=== PATIENT | female | born 1940 | race Caucasian/White ===

== ENCOUNTER 2022-03-12 17:43 | Inpatient (IN) | payer MEDICARE ==
[~2022-03-12] VITALS: Ht 160 cm; Wt 41.7 kg
--- NOTE | 2022-03-12 17:53 | NUR ---
PT SEEN BY DR. LYMAN AT BEDSIDE
--- NOTE | 2022-03-12 18:16 | NUR ---
RIVET PASSER AT BEDSIDE FOR XRAY
[2022-03-12] MEDS ORDERED: METO25TA4 PO (18:46)
--- NOTE | 2022-03-12 18:46 | NUR ---
COVID SWAB COLLECTED AND SENT TO LAB
[2022-03-12] MEDS ORDERED: CEFAZOLIN 1 GM in IV D5W 50 ML IV ONE (19:00)
[2022-03-12 19:09] LABS: CALCIUM, SERUM 8.7 mg/dL (8.5-10.1); CREATININE 0.7 mg/dL (0.6-1.3); POTASSIUM 4.5 mmol/L (3.5-5.1)
[2022-03-12] MEDS ORDERED: LIDOCAINE 1%-EPI 1:100,000 20 ML VIAL ONE (19:10)
--- NOTE | 2022-03-12 19:24 | NUR ---
[id number] FRM HOME, C/O R WRIST PAIN AND RFA SKIN TEAR S/P TRIP AND FALL WHILE AMBULATING TO RESTROOM PER CAREGIVER. PT AWAKE AND ALERT AT BASELINE MENTATION X1 DUE TO HX DEMENTIA. PT ON MONITOR AND V/S WNL.
--- NOTE | 2022-03-12 19:25 | NUR ---
PA AT BEDSIDE FOR SUTURES
[2022-03-12] MEDS ORDERED: LIDOCAINE 1%-EPI 1:100,000 20 ML VIAL TP ONE (19:30)
--- NOTE | 2022-03-12 19:48 | NUR ---
SPOKE TO HENRIQUE AT [facility] AT [phone] AND FAXED THE CLINICAL TO [phone]
[2022-03-12 20:02] LABS: BASOPHILS % (AUTO) 0.4 % (0.0-2.0); EOSINOPHILS % (AUTO) 1.7 % (0.0-6.0); HEMATOCRIT 42 % (33-45); LYMPHOCYTES # (AUTO) 1.2 K/uL (0.8-4.8); LYMPHOCYTES % (AUTO) 14.2 % (20.0-44.0); MEAN CORPUSCULAR HGB CONC 33 g/dl (31.0-36.0); MEAN CORPUSCULAR VOLUME 91 fL (82-100); MONOCYTES # (AUTO) 0.6 K/uL (0.1-1.30); MONOCYTES % (AUTO) 7.1 % (2.0-12.0); NEUTROPHILS # (AUTO) 6.5 K/uL (1.8-8.9); NEUTROPHILS % (AUTO) 76.6 % (43.0-81.0); PLATELET COUNT (AUTO) 319 K/uL (150-450); RED BLOOD CELL COUNT(AUTO) 4.65 MIL/uL (4.0-5.2); WHITE BLOOD COUNT (AUTO) 8.5 K/uL (4.3-11.0)
--- NOTE | 2022-03-12 20:24 | NUR ---
DR LYMAN ON THE PHONE WITH [facility]
--- NOTE | 2022-03-12 20:25 | NUR ---
PER DR LYMAN, DR SKY AT [facility] ACCEPTED THE PT
--- NOTE | 2022-03-12 20:49 | NUR ---
FORESTRY TREE PRUNER AT BEDSIDE FOR SPLINT APPLICTION
--- NOTE | 2022-03-12 21:37 | NUR ---
REC'D A CALL FROM HENRIQUE AT [facility], STATED CASE IS DECLINED DUE TO THEY'RE AT [facility]
--- NOTE | 2022-03-12 21:44 | NUR ---
CALLED [phone] [facility] AND SPOKE TO MARJORIE. THEY'RE STILL NOT OPERATING REGION 1 TRANSFER CANTER, WILL FAX THE CLINICAL TO MONICA AT [phone]
--- NOTE | 2022-03-12 21:56 | NUR ---
[facility]
--- NOTE | 2022-03-12 21:57 | NUR ---
FAXED CLINICALS TO MONICA AT [facility] [phone]
--- NOTE | 2022-03-12 22:04 | NUR ---
PER LEONILA AT [facility] UNABLE TO ACCPET THE PT THEY'RE JEREMI;NEAL ADMISSIONS IN ER
--- NOTE | 2022-03-12 22:12 | NUR ---
SPOKE TO ALDO AT [facility] AND FAXED CLINICALS TO [phone]
--- NOTE | 2022-03-12 22:18 | NUR ---
SPOKE AND FAXED CLINICALS TO BERT Mari/Austen ALVARADO AT [phone]
--- NOTE | 2022-03-12 22:37 | NUR ---
ON THE PHONE WITH [facility] FOR POSSIBLE TRANSFER FOR >20 MIN,. NO ANSWER
--- NOTE | 2022-03-12 22:38 | NUR ---
PER CHRISTIANO GARCIA HOUSTON THIS IS CONSIDERED A LATERAL TRANSFER. AND THE FAMILY IS RESPONSIBLE FOR THE AMBULANCE COST. STILL LOOKING FOR BED
--- NOTE | 2022-03-12 22:43 | NUR ---
REC'D A CALL FROM [facility], THE CLINICALS ARE REC'D. LOOKING FOR BED AVAILABLITIES. NO BED AT THIS TIME
--- NOTE | 2022-03-12 22:56 | NUR ---
[facility] [place] PER TAMI THEIR ED IS AT [facility].
--- NOTE | 2022-03-12 23:33 | NUR ---
SPOKE TO RODRIGO AT [facility], NO BED AVAILABLE
--- NOTE | 2022-03-12 23:36 | NUR ---
SPOKE TO GOLF [employer]UB WEIGHER [address] AT [facility]. NO BED AVAILABLE
--- NOTE | 2022-03-12 23:40 | NUR ---
PER MAY AT [facility] NO BED AVAILABLE
--- NOTE | 2022-03-12 23:53 | NUR ---
SPOKE TO EMI MONTGOMERY FROM [facility] AND INFORMED OF NO AVAILABLE BEDS FOR [facility], .
--- NOTE | 2022-03-12 23:54 | NUR ---
SPOKE TO SHANE FOSS [facility] @ [phone]. SHE PAGED THEIR ONCALL ONTHO, DR DIAMOND. AWAITING FOR HIS CALL DR MAYNARD ON THE PHONE WITH DR RICCI @ ER Addendum: 03/13/22 at 0031 by CSHAYESTEH SHANE IS AT [facility] [place] COVERING ANNA ARZOLA WELL.
--- NOTE | 2022-03-13 00:22 | NUR ---
FAXED UPDATED FACESHEET TO MARJORIE AT [facility] AND SPOKE TO HER OVER THE PHONE. SHE WILL PAGE THE ORTHO.
--- NOTE | 2022-03-13 00:36 | NUR ---
PER NANCY MONTGOMERY AT [facility], THEIR ORTHOPEDIC IS UNABLE TO TAKE AN OPEN RADIAL FRACTURE AT THIS TIME.
--- NOTE | 2022-03-13 01:08 | NUR ---
ON THE PHONE WITH [facility] FOR MORE THAN 30 MINUTES. HUNG UP ON ME!
--- NOTE | 2022-03-13 01:51 | NUR ---
CALLED [facility] FOR POSSIBLE TRANSFER. WAS INSTRUCTED TO GET ASSISTANCE FROM [facility] TO TRANSFER THE PT.
--- NOTE | 2022-03-13 02:12 | NUR ---
spoke to jovanni fung cm at [phone] and faxed the clinicals to [phone]
[2022-03-13] MEDS ORDERED: MORPHINE SULFATE INJ 4 MG/ML DISP.SYRIN ONE (03:06)
--- NOTE | 2022-03-13 03:27 | NUR ---
MARIBEL DUNN, FOOD AND BEVERAGE ASSISTANT AT [facility], PT IS ACCPETED AT [facility] BY HOSPITALIST, DR BALL AND ORHTODR MURRAY. AWAITING FOR BE AVAILABLE AFTER 0800. MONA WILL UPDATE US.
[2022-03-13] MEDS ORDERED: MORPHINE SULFATE 8 MG/ML VIAL IV ONE (03:30)
--- NOTE | 2022-03-13 08:22 | NUR ---
EMERGENCY CONTACT: SISTER NIRANJAN ELLISON [phone]
--- NOTE | 2022-03-13 08:29 | NUR ---
ASSESSED PT PAIN LEVEL, STATED THAT SHE DOES NOT WANT PAIN MEDICATIONS AT THIS TIME.
--- NOTE | 2022-03-13 10:20 | NUR ---
PT WATCHING TV IN BED COMFORTABLY, ALL NEEDS MET AT THIS TIME.
--- NOTE | 2022-03-13 10:43 | NUR ---
received a call from the Ana MONTGOMERY from [facility] to call us back to where the patient is going to be transfer.
[2022-03-13] MEDS ORDERED: CEFTRIAXONE 1GM BAG (ER ONLY) 1 GM/50 ML PIGGYBACK IV ONE (11:00)
[2022-03-13] MEDS ORDERED: CEFTRIAXONE 1GM BAG (ER ONLY) 50 ML IV ONE (11:02)
--- NOTE | 2022-03-13 12:00 | NUR ---
BANKING AND FINANCE INSTRUCTOR FOR [employer] CALLED ASKING ABOUT COVID RESULT AND WAS NOTIFIED THAT THERE IS A POSSIBLE FACILITY THAT WILL ACCEPT THE PT. FAXED COVID RESULT TO [phone]
--- NOTE | 2022-03-13 12:01 | NUR ---
*BREWMASTER [employer] PHONE NUMBER UPDATED* [phone] Option [facility]
[2022-03-13] MEDS ORDERED: CEFAZOLIN 1 GM in IV D5W 50 ML IV SCH (14:30)
[2022-03-13] MEDS ORDERED: ANCEF 1 GM/50 ML D5W IV ONE ×2 (16:30)
[2022-03-13] MEDS ORDERED: ONDANSETRON HCL/PF 4 MG/2 ML VIAL IVP PRN (18:30)
[2022-03-13] MEDS ORDERED: ACETAMINOPHEN 325 MG TABLET PO PRN (18:30)
[2022-03-13] MEDS ORDERED: MAG HYDROX/AL HYDROX/SIMETH 30 ML UDC PO PRN (18:30)
[2022-03-13] MEDS ORDERED: MORPHINE SULFATE INJ 2 MG/ML DISP.SYRIN IV PRN (18:30)
[2022-03-13] MEDS ORDERED: MAGNESIUM HYDROXIDE 30 ML UDC PO PRN (18:30)
[2022-03-13] MEDS ORDERED: Z GUARD REMEDY 4 OZ OINT TP PRN (18:30)
--- NOTE | 2022-03-13 19:53 | NUR ---
afshin from [facility] authorization [id number]
--- NOTE | 2022-03-13 20:43 | NUR ---
REPORT GIVEN TO DEBRA ON THIRD FLOOR
--- NOTE | 2022-03-13 20:44 | NUR ---
PATIENT BEING TRANSFERRED TO [facility]
[2022-03-13 22:00] VITALS: BP 131/73
--- NOTE | 2022-03-13 23:42 | NUR ---
MS RN NOTES PT ARRIVED TO UNIT VIA GURNEY PT WAS ABLE TO WALK TO BED NOTED WITH STEADY GAIT. PT A/O X2 CONFUSED AND FORGETFUL. PT NOTED WITH IV ACCESS ON THE LFA#20G SALINE LOCKED. PT NOTED WITH RIGHT ARM DRESSING INTACT PT HAS R WRST OPEN FRACTURE. PT TO HAVE SX WITH DR SPENCER TOMORROW @1000 CONSENT OBTAINED FROM SISTER DENISHA TIRADO WITNESSED BY CHARGE NURSE IVA. PER SISTER ONLY MEDICAL HX DEMENTIA. PT ALSO NOTED WITH BLE DISCOLORATION PHOTO TAKEN AND PLACE IN CHART. PT ORIENTED TO UNIT AND ROOM CALL LIGHT PLACED WITHIN REACH. PT REPORTED SOME R WRIST PAIN 8/10 PRN MORPHINE GIVEN AND TOLERATED WELL. WILL CONTINUE TO MONITOR.
--- NOTE | 2022-03-14 02:00 | NUR ---
MS RN NOTES ACUTE MEDICAL RESTRAINT ORDERED DUE TO PTS CONFUSION AND FORGETFULNESS. PT KEEPS TRYING TO GET UP AND PUTTING PRESSURE ON R WRIST. BILATERAL RESTRAINT APPLIED CIRCULATION CHECKED Q2HRS. HYGIENE, AND TOILETING NEEDS MET. WILL CONTINUE TO MONITOR.
--- NOTE | 2022-03-14 04:00 | NUR ---
MS RN NOTES ONE TIME DOSE OF SEROQUEL ORDERED MT DR ROBERTS DUE TO PTS AGITATION. TOLERATED WELL. WILL CONTINUE OT MONITOR.
[2022-03-14] MEDS ORDERED: QUETIAPINE FUMARATE 25 MG TABLET PO ONE (04:30)
--- NOTE | 2022-03-14 06:48 | NUR ---
MS RN NOTES PT ASLEEP IN BED EASILY WOKEN UP WITH BILATERAL RESTRAINT ON AT THIS TIME. PT IN NO DISTRESS IN NO PAIN. ON ROOM AIR TOLERATING WELL. ALL NEEDS MET THROUGHOUT THE SHIFT. FREQUENT MONITORING.PT NPO SINCE MIDNIGHT FOR SX OF THE RIGHT WRIST. CONSENTS SIGNED AND PLACED IN CHART. WILL ENDORSE SHAILESH TO DAY SHIFT NURSE.
[2022-03-14 07:22] LABS: BASOPHILS % (AUTO) 0.1 % (0.0-2.0); EOSINOPHILS % (AUTO) 0.2 % (0.0-6.0); HEMATOCRIT 41 % (33-45); HEMOGLOBIN 13.4 g/dL (11.5-14.8); LYMPHOCYTES # (AUTO) 0.8 K/uL (0.8-4.8); LYMPHOCYTES % (AUTO) 7.5 % (20.0-44.0); MEAN CORPUSCULAR HGB CONC 33 g/dl (31.0-36.0); MEAN CORPUSCULAR VOLUME 91 fL (82-100); MONOCYTES # (AUTO) 0.9 K/uL (0.1-1.30); MONOCYTES % (AUTO) 9.3 % (2.0-12.0); NEUTROPHILS # (AUTO) 8.3 K/uL (1.8-8.9); NEUTROPHILS % (AUTO) 82.9 % (43.0-81.0); PLATELET COUNT (AUTO) 265 K/uL (150-450); RED BLOOD CELL COUNT(AUTO) 4.49 MIL/uL (4.0-5.2)
[2022-03-14 07:54] LABS: CALCIUM, SERUM 8.5 mg/dL (8.5-10.1); CARBON DIOXIDE 34 mmol/L (21-32); CHLORIDE 99 mmol/L (98-107); CREATININE 0.6 mg/dL (0.6-1.3); GLUCOSE 97 mg/dL (74-106); MAGNESIUM 1.9 mg/dL (1.8-2.4); PHOSPHORUS 2.8 mg/dL (2.5-4.9); POTASSIUM 3.9 mmol/L (3.5-5.1); SODIUM SERUM 136 mmol/L (136-145); UREA NITROGEN, BLOOD 20 mg/dL (7-18)
[2022-03-14 08:00] VITALS: BP 137/76
[2022-03-14] MEDS: METOPROLOL SUCCINATE 25 MG TAB.SR.24H PO SCH (09:00)
[2022-03-14] MEDS ORDERED: ANESTHESIA TRAY IN PYXIS 1 EA TRAY MC ONE (10:38)
[2022-03-14] MEDS ORDERED: BUPIVACAINE 0.25% 75 MG/30 ML VIAL ONE (10:39)
[2022-03-14] MEDS ORDERED: FENTANYL PF 250MCG/5ML AMPUL ONE (11:14)
[2022-03-14] MEDS ORDERED: FAMOTIDINE/PF INJ 20 MG/2 ML VIAL IV ONE (11:15)
[2022-03-14] MEDS ORDERED: ROCURONIUM BROMIDE 50 MG/5 ML ONE (11:15)
[2022-03-14] MEDS ORDERED: MIDAZOLAM HCL 2 MG/2ML VIAL ONE (11:15)
[2022-03-14] MEDS ORDERED: BISACODYL SUPP (10 MG) 10 MG/SUPP.RECT SUPP.RECT RC PRN (14:00)
[2022-03-14] MEDS ORDERED: DOCUSATE SODIUM 100 MG CAPSULE PO PRN (14:00)
[2022-03-14] MEDS ORDERED: DOCUSATE SODIUM 250 MG CAPSULE PO PRN (14:00)
[2022-03-14] MEDS ORDERED: HYDROCODONE/APAP 5/325MG TABLET PO PRN (14:00)
[2022-03-14] MEDS ORDERED: SENNOSIDES 8.6 MG TABLET PO PRN ×2 (14:00)
[2022-03-14] MEDS ORDERED: MORPHINE SULFATE INJ 4 MG/ML DISP.SYRIN IV PRN (14:00)
[2022-03-14 16:00] VITALS: BP 113/68
[2022-03-14] MEDS: IV NS 0.9% 1,000 ML IV PRN (16:36)
--- NOTE | 2022-03-14 18:12 | NUR ---
RN MS NOTES RECEIVED PT FROM LORI COOL, PT IN BED, ASLEEP, EASY TO AROUSE, NO COMPLAINT AT THIS TIME, RESPIRATIONS NORMAL, IV FLUIDS INFUSING WELL, CALL LIGHT WITHIN REACH, RIGHT ARM WITH DRESSING, NO S/S OF BLEEDING, DRESSING DRY AND INTACT, KEPT ELEVATED, KEPT WARM AND COMFORTABLE.
--- NOTE | 2022-03-14 19:11 | NUR ---
RN MS OPENING NOTES PT IN BED, ASLEEP, EASY TO AROUSE, NO COMPLAINT AT THIS TIME, RESPIRATIONS NORMAL, ON O2 2L VIA NASAL CANNULA IV FLUIDS NS @ 100 ML/HR INFUSING WELL, CALL LIGHT WITHIN REACH, RIGHT ARM WITH DRESSING, NO S/S OF BLEEDING, DRESSING DRY AND INTACT, KEPT ELEVATED, KEPT WARM AND COMFORTABLE RESTRAINTS OFF AT THIS TIME. WILL CONTINUE TO MONITOR.
[2022-03-14 20:00] VITALS: BP 96/56
[2022-03-14] MEDS: ANCEF 1 GM/50 ML D5W IV SCH ×2 (20:04)
[2022-03-15] VITALS: BP 130/73
[2022-03-15] MEDS: ANCEF 1 GM/50 ML D5W IV SCH ×6 (03:28→20:29)
[2022-03-15 04:00] VITALS: BP 136/76
[2022-03-15 06:27] LABS: BASOPHILS % (AUTO) 0.1 % (0.0-2.0); EOSINOPHILS % (AUTO) 0.2 % (0.0-6.0); HEMATOCRIT 36 % (33-45); HEMOGLOBIN 11.9 g/dL (11.5-14.8); LYMPHOCYTES # (AUTO) 0.6 K/uL (0.8-4.8); LYMPHOCYTES % (AUTO) 4.2 % (20.0-44.0); MEAN CORPUSCULAR HGB CONC 33 g/dl (31.0-36.0); MEAN CORPUSCULAR VOLUME 93 fL (82-100); MONOCYTES # (AUTO) 0.8 K/uL (0.1-1.30); NEUTROPHILS # (AUTO) 11.7 K/uL (1.8-8.9); NEUTROPHILS % (AUTO) 89.5 % (43.0-81.0); PLATELET COUNT (AUTO) 207 K/uL (150-450); RED BLOOD CELL COUNT(AUTO) 3.91 MIL/uL (4.0-5.2); WHITE BLOOD COUNT (AUTO) 13.1 K/uL (4.3-11.0)
--- NOTE | 2022-03-15 06:41 | NUR ---
RN MS CLOSING NOTES PT IN BED, ASLEEP, EASY TO AROUSE, NO COMPLAINT AT THIS TIME, RESPIRATIONS NORMAL, ON O2 3L VIA NASAL CANNULA IV FLUIDS NS @ 100 ML/HR INFUSING WELL, CALL LIGHT WITHIN REACH, RIGHT ARM WITH DRESSING, KEPT ELEVATED, KEPT WARM AND COMFORTABLE. PT CALM WHEN AWAKE A/0 X2 FORGETFUL BUT EASILY REORIENTED. NEW IV ACCESS ESTABLISHED L WRIST #22G.
[2022-03-15 07:05] LABS: CALCIUM, SERUM 8.2 mg/dL (8.5-10.1); CARBON DIOXIDE 29 mmol/L (21-32); CHLORIDE 104 mmol/L (98-107); CREATININE 0.9 mg/dL (0.6-1.3); GLUCOSE 87 mg/dL (74-106); MAGNESIUM 1.9 mg/dL (1.8-2.4); PHOSPHORUS 4.3 mg/dL (2.5-4.9); POTASSIUM 4.4 mmol/L (3.5-5.1); SODIUM SERUM 138 mmol/L (136-145); UREA NITROGEN, BLOOD 20 mg/dL (7-18)
--- NOTE | 2022-03-15 07:30 | NUR ---
RN MS OPENING NOTES PT IN BED, ASLEEP, EASY TO AROUSE, NO COMPLAINT AT THIS TIME, RESPIRATIONS NORMAL, ON O2 3L VIA NASAL CANNULA IV ACCESS L H #22 RUNNING FLUIDS NS @ 100 ML/HR INFUSING WELL. TELE MONITOR READING SR, HR- 73. CALL LIGHT WITHIN REACH. RIGHT ARM WITH DRESSING, NO S/S OF BLEEDING, DRESSING DRY AND INTACT, KEPT ELEVATED, WILL CONTINUE TO MONITOR
--- NOTE | 2022-03-15 07:34 | NUR ---
WOUND CARE CONSULT: PT SEEN FOR FOREARM SKIN TEARS, PRESENT ON ADMISSION. RECOMMENDATIONS MADE FOR SKIN PROTECTION AND WOUND CARE. DISCUSSED WITH NURSING STAFF. PT ALSO NOTED TO HAVE VERY FRAGILE SKIN, DISCOLORATION TO BILATERAL LOWER LEGS AND DRY EXCORIATION/DISCOLORATION TO RT BUTTOCK WITH VERY BONY SACRAL AREA, PRESENT ON ADMISSION. PT IS VERY THIN AND BONY. MD IN AGREEMENT WITH PLAN OF CARE.
[2022-03-15 08:00] VITALS: BP 127/72
[2022-03-15] MEDS: METOPROLOL SUCCINATE 25 MG TAB.SR.24H PO SCH (08:24)
--- NOTE | 2022-03-15 12:56 | NUR ---
RN NOTE- PT W SR 70'S . CHANGES NOTED BY TELE MONITOR. STAT EKG ORDERED. HR - 140'S. AFIB. DR WINTERS FORWARDED EKG. AMIODARONE 400 MG PO TID ORDERED. COMPLIED.
[2022-03-15] MEDS: AMIODARONE HCL 200 MG TABLET PO SCH ×2 (13:03→17:05)
[2022-03-15] MEDS: HYDROCODONE/APAP 5/325MG TABLET PO PRN (14:05)
--- NOTE | 2022-03-15 14:09 | NUR ---
SS consult requested for safe DC planning. SS Consult: SS Consult requested for safe DC planning. The pt. is a 81-year-old female patient that was brought in by caregiver after pt. suffered ground level fall which resulted in right radius fracture per EMR. Per EMR, the pt. has Hx. of Dementia. Upon SS consult, the pt. is A&O x 3 and makes appropriate eye contact. Pt. does have some confusion. The pt. appears well-groomed and presents with a euthymic mood and affect. Pt. denies current SI/HI and denies current hallucinations. Pt. has normal thought process and speech is WNL. PSW explored pt.s living situation. Per pt., she lives at home[[address] [address]; [phone]] with her sister. The patients caregiver, Jerica [phone] is at bedside. SW explored pt.s drug or alcohol use and pt. denies any use of drug or alcohol. Pt. states she receives SSI. Plan: Pt. stated she would like to go home to her apt[[address] [address]; [phone]]. Patient stated her caregiver, Jerica [phone] would be providing transportation to home when ready for discharge. SW provided pt. with senior resources and pt. accepted them. ABUSE PREVENTION: ELDER ABUSE HOTLINE (19/03) ADULT PROTECTIVE SERVICES HOTLINE LONG-TERM CARE GROUP [facility] COMPREHENSIVE [facility]ALTH CARE FACILITY Region AREA ON AGING (HOTLINE) ADULT DAY HEALTH CARE CARE CENTERS: Private pay or Medi-[facility] funded adult day care [place] [facility] Care [facility] , [facility] Services , [facility] , [facility] Adult Day Health Care , [facility] Adult Day Health Care , [facility] Adult Daycare Center , [facility] Express , [place] Kita [facility] , [place] ALZHEIMERS DISEASE/DEMENTIA: Alzheimers Association Helpline [facility] Chapter www.alz.org/[facility] Department of Aging www.lacity.org Family Caregiver Stanton www.caregiver.org [place] Caregiver Resources Center/Family Support www.[facility].org CANCER RESOURCES: [place] Cancer Society www.cancer.org Cancer Support Community www.CancerSupportVvsb.org: CancerCare www.cancercare.org [facility] Cancer Support Center www.[facility]/greybull.org COMMUNITY HEALTH ASSOCIATIONS: AARP www.aarp.org ALS Association (ask for Milli) www.als.org [place] Diabetes Association www.diabetes.org [place] Heart Association www.heart.org [place] Lung Association www.lungusa.org [place] Parkinson Disease Association www.apdaparkinson.org [place] , www.redcross.org Arthritis Foundation www.arthritis.org Crohns & Colitis Foundation of [place] www.ccfa.org/chapters/macey National Multiple Sclerosis Society www.nationalmssociety.org Myasthenia Gravis Foundation www.myasthenia-ca.org National Stroke Association www.stroke.org CONSERVATORSHIP & GUARDIANSHIP: AARP Jeannette Philip Legal Services Center for Health Care Rights Eldercare Information and Referral Medical Social Worker [facility]: [facility] Bar Referral Service [facility] Legal Services Office of the Public Guardian [place] EYESIGHT DISORDER RESOURCES: [place] Macular Degeneration Foundation [facility] www.[facility].org GRIEF AND BEREAVEMENT RESOURCES: The Gathering Place , [facility] THE HOPE Connection , [facility] Bereavement Center , [place] HEARING DISORDER RESOURCES: [place] Telephone Access Program Deaf and Disabled Telecommunications Program www.ddtp.[facility].ca.gov HearRx Hearing Centers ([place]) Better Hearing Systems , [place] GLAD ([facility] Agency on Deafness) V/ TTY; Educational Recruiter , [facility] Hearing [facility] [place] -low income hearing aid assistance www.hca [facility] bay[facility] point hospitalfoundation.org [facility] Hearing Care , Daniel HELP AT HOME CAREGIVER SUPPORT: In Home Support Services (Must have Medi-[facility] to be eligible) *Ask for a list of agencies that provide services to assist with care in the home. Local Senior Centers also have listings of care providers. HOME SAFETY MODIFICATIONS AND EQUIPMENT: Senior centers have additional referrals. MD Housing and Community Investment Dept. Handyworker Program (low income) or Visit http://hcidla.[facility].org/hdp-wgfxtk-ep for more information National Seating and Mobility and/or ; Forever Active www.foreveractivemed.Tamar Energy Stay Home Safe www.Stayhomesafe.Tamar Energy LIFE ALERT RESPONSE SYSTEM: Siri Services 101-142-3539 www. The Black Tux Life Alert 131-103-0868 www.Global Capacity (Capital Growth Systems) Life Station 506-539-5430 www.EntraTympanic.Tamar Energy Safe Return 683-608-8404 www.alz.or/safereturn Cell Phones for Seniors www.Komar Games MEALS AND FOOD PROGRAMS: Marilynn Meals on Wheels [phone] Athena Meals on Wheels [phone] [facility] [phone] [place] to the Homebound [phone] [place] to the Homebound [phone] [facility] to the Homebound [phone] [facility] to the Homebound [phone] [facility] Aurelio [place] [phone] TamGerald [facility] [phone] ONE Generation [phone] [facility] [phone] Replaced By [facility] [phone] Meals on Wheels [phone] For all ages: $6.85/ meal w side. Delivered M-F from 10 am-1pm. Application and payment is done over the phone. Frozen meals available for weekends. Emergency Food Coallittle [facility] [phone] [facility] Drupal Php Developer [phone] [facility] [phone] [facility]- Brown bag lunches [phone] [facility] [phone] MEAL/GROCERY DELIVERY PROGRAMS: Real [facility] Gourmet Meals [phone]- [facility] [phone] [facility] Magic Kitchen [phone] Moms Meals [phone] (ask Cooper for Discount Select grocery stores may provide delivery. MEDICAL INSURANCE SUPPORT SERVICES: Center for Health Care Rights [phone] Health Insurance Counseling/Advocacy Programs (HICAP)-Must have Medicare. Offers counseling for Medi-Lion eligibility [phone] Department of Public Drupal Php Developer [phone] www.[facility].ca.gov Medicare [phone] www.socialsecurity.org Social Security [phone] SENIOR ACTIVITY PROGRAMS: *Contact a local senior center, adult school, recreation facility or community [facility] for education, fitness, recreation, and social programs. Aquatic Therapy and Adapted Exercise programs through [facility] [phone] Encore at [facility] [phone] www.[facility]/encore U- Senior Friends [phone] [place] Senior Programs [phone] www.oasisnet.org Suddenly 65 www.ecjwkcyy91.Tamar Energy SENIOR CENTERS: [facility] [phone] [facility] [phone] [facility] [phone] [facility] [phone] [facility] [phone] [facility] [phone] [facility] [phone] [facility] [phone] One [facility] [phone] [facility] [phone] [facility] [phone] [facility] [phone] [facility] [phone] TRANSPORTATION: Local [facility] may have applications for transportation programs and additional resources. ACCESS Services [phone] Transportation for seniors and disabled persons 7 days a week requiring 254 hr. advance reservation. Must apply and register for program con eligible. CITY RIDE 218-381-1894 or [phone] Transportation for seniors and persons with ADA card/metro disabled card in the [facility]. M-F only. Must register for services. ONE GENERATION [phone] Serves 65 years + in conjunction with city ride program. Must be registered with both programs. A to B Transport [phone] Provides wheelchair/gurney van service. Adult Medical Transport [phone] Accepts [facility]-lion with prior authorization. Care Van [phone] Provides wheelchair Transport. [facility] Wide Transportation [phone] Provides gurney service Gentle Care [phone] Gurney Transport. All Town Transportation [phone] wheelchair & gurney transport D Transportation [phone] wheelchair & gurney transport [place] Non-Emergency Transport [phone] wheelchair & gurney transport Independent Living Center [phone] Short Term Transportation primarily for adults with disabilities on social security income. Nominal fee may apply and a reservation is required. [facility] Cab [phone] or [phone] [facility] [phone] [place] [address] Referral Services [phone] For additional programs & services VETERANS RESOURCES: Submissions for Aid and Attendance should be done directly to Federal VA office locatd at : [address] [facility] [address] X110 National Caregiver Support Line [phone] [facility] Veterans Services Field Office [phone] [place] Department of Affairs [phone] Pension Information [phone]
--- NOTE | 2022-03-15 15:29 | NUR ---
RN NOTE- PT W CONTINUED ANXIETY, RESTLESSNESS AND BEHAVIORAL ISSUES. DR BUTTERFIELD NOTIFIED. ATIVAN 0.5 MG Q6H PRN ORDERED. COMPLIED.
[2022-03-15 16:00] VITALS: BP 158/91
[2022-03-15] MEDS ORDERED: LORAZEPAM 0.5 MG TABLET PO PRN (16:00)
--- NOTE | 2022-03-15 16:05 | NUR ---
RN NOTE- PT RECEIVED SKIN TEAR TO LT FOREARM DUE TO THRASHING ABOUT AND ANXIETY. CLEANSED W NS, PETROLEUM GAUZE AND 4X4 APPLIED. WRAPPED W KERLIX. TOLERATED WELL
[2022-03-15] MEDS: LORAZEPAM 0.5 MG TABLET PO PRN (17:03)
--- NOTE | 2022-03-15 17:12 | NUR ---
ONCOLOGY RN NOTES: 1700- SOFT RESTRAINTS HELD DUE TO PT CONTINUED TO BE AGITATED AND COMBATIVE, PRIVATE CAREGIVER AT BEDSIDE NOT ABLE RESTRAIN PT TRASHING AROUND, KICKING AND SCRATCHING. PT HIT HER LFT LEG ON SIDERAILS WHILE TRYING TO GET UP WHICH RESULTED IN LEFT LEG SKIN TEAR. PER CAREGIVER, PT ALSO SCRATCHED HERSELF ON LOWER LEFT LEG. RN CLEANED SKIN TEARS WITH NORMAL SALINE, DRESSED IN XEROFORM AND KERLIX. ENVIRONMENTAL MANAGER AWARE, MADE MD AWARE, WOULD CONSULT ORDERED.
--- NOTE | 2022-03-15 19:04 | NUR ---
RN CLOSING NOTES PT IN BED, ASLEEP. NO ACUTE DISTRESS OR SOB NOTED. AT THIS TIME. RESPIRATIONS NORMAL, ON O2 3L VIA NASAL CANNULA IV ACCESS L H #22 RUNNING FLUIDS NS @ 100 ML/HR INFUSING WELL. TELE MONITOR READING SR, HR- 77. CALL LIGHT WITHIN REACH. RIGHT ARM WITH DRESSING, NO S/S OF BLEEDING, DRESSING DRY AND INTACT, HOB ELEVATED, BED LOCKED AT LOWEST POSTION, CALL LIGHT AND TABLE WITHIN REACH WILL ENDORSE TO NEXT SHIFT.
--- NOTE | 2022-03-15 19:20 | NUR ---
RN opening notes Pt is resting in bed comfortably. Pt is alert and orientedX2. On 3 L NC. No SOB. No S/S of distress noted. IV site at L wrist # 22 is clean, intact and infusing well NS@ 100 ml/hr. Tele monitor showed SR hr at 70. Safety precautions is maintained. Bed at low position, brakes locked, side rails upX3, hob elevated, bed alarm is on and call light is within reach. Will continue to monitor.
[2022-03-15 20:00] VITALS: BP 122/69
[2022-03-16] VITALS (7 sets, daily range): BP systolic 97–155; BP diastolic 62–85
[2022-03-16] MEDS: IV NS 0.9% 1,000 ML IV PRN (00:23)
[2022-03-16] MEDS: LORAZEPAM 0.5 MG TABLET PO PRN ×2 (02:02→18:43)
--- NOTE | 2022-03-16 02:07 | NUR ---
RN notes Pt is feeling anxious and requesting med. administered ativan 1mg/po/prn as ordered. Safety precautions is maintained. Will continue to monitor.
[2022-03-16] MEDS: ANCEF 1 GM/50 ML D5W IV SCH ×4 (03:35→11:31)
--- NOTE | 2022-03-16 06:45 | NUR ---
RN closing notes Pt is resting in bed comfortably. Pt is alert and orientedX2. On 3 L NC. No SOB. No S/S of distress noted. VS is stable. Routine meds were given as ordered. IV site at L wrist # 22 is clean, intact and infusing well NS@ 100 ml/hr. Tele monitor showed SR hr at 68. R arm dressing is clean, intact and dry. Kept Pt clean, dry and comfortable. Safety precautions is maintained. Bed at low position, brakes locked, side rails upX3, hob elevated, bed alarm is on and call light is within reach. Will endorse to am nurse for SHAILESH.
--- NOTE | 2022-03-16 07:30 | NUR ---
BODY RECALL INSTRUCTOR OPENING NOTES: RECEIVED PATIENT IN BED ASLEEP EASY TO AROUSED WITH STIMULI, A/O X2. NO SOB OR CARDIAC DISTRESS NOTED ON O2 INHALATION @2LPM VIA NC AND TOLERATING WELL. ON POULTRY OFFAL ICER WITH CURRENT READING OF SR 68BPM,NOTED WITH SPLINT AND DRESSING ON RIGHT ARM NO S/S OF ANY BLEEDING OR DISCHARGES. WITH LEFT WRIST G22 NS @ 1OOML/HR. SAFETY PRECAUTIONS MAINTAINED: BED LOCKED AND IN LOWEST POSITION, SIDE RAILS UP X 2 CALL LIGHT IN EASY REACH FOR HELP/ASSISTANCE. WILL MONITOR FOR ANY SIGNIFICANT CHANGE.
[2022-03-16] MEDS: AMIODARONE HCL 200 MG TABLET PO SCH ×3 (08:29→16:34)
[2022-03-16] MEDS: METOPROLOL SUCCINATE 25 MG TAB.SR.24H PO SCH (08:29)
[2022-03-16 10:50] LABS: BASOPHILS % (AUTO) 0.2 % (0.0-2.0); EOSINOPHILS % (AUTO) 0.8 % (0.0-6.0); HEMATOCRIT 38 % (33-45); HEMOGLOBIN 12.3 g/dL (11.5-14.8); LYMPHOCYTES # (AUTO) 0.6 K/uL (0.8-4.8); LYMPHOCYTES % (AUTO) 6.4 % (20.0-44.0); MEAN CORPUSCULAR HGB CONC 33 g/dl (31.0-36.0); MEAN CORPUSCULAR VOLUME 92 fL (82-100); MONOCYTES # (AUTO) 0.9 K/uL (0.1-1.30); MONOCYTES % (AUTO) 9.7 % (2.0-12.0); NEUTROPHILS # (AUTO) 8.1 K/uL (1.8-8.9); NEUTROPHILS % (AUTO) 82.9 % (43.0-81.0); PLATELET COUNT (AUTO) 212 K/uL (150-450); RED BLOOD CELL COUNT(AUTO) 4.09 MIL/uL (4.0-5.2); WHITE BLOOD COUNT (AUTO) 9.7 K/uL (4.3-11.0)
[2022-03-16 11:19] LABS: CREATININE 0.7 mg/dL (0.6-1.3); MAGNESIUM 1.9 mg/dL (1.8-2.4); POTASSIUM 4.2 mmol/L (3.5-5.1)
--- NOTE | 2022-03-16 12:47 | NUR ---
RN NOTES: COLLECTED URINE, SPOKE TO TALON FROM LAB URINE READY TO MACHINE PACK ASSEMBLER.
[2022-03-16 13:55] LABS: BILIRUBIN,URINE NEGATIVE (NEGATIVE); COLOR,URINE DARK YELLOW (YELLOW); LEUKOCYTE ESTERASE ,URINE NEGATIVE (NEGATIVE); NITRITE, URINE NEGATIVE (NEGATIVE); PROTEIN,URINE TRACE mg/dl (NEGATIVE); UGLUCOSE NEGATIVE (NEGATIVE); UROBILINOGEN,URINE 0.2 EU/dL (0.2)
[2022-03-16] MEDS ORDERED: K PHOS NEUTRAL 250 MG TABLET PO ONE (15:30)
[2022-03-16 16:13] LABS: BACTERIA,URINE Few /HPF (None Seen); SQUAMOUS EPITHELIAL CELL,UR Moderate /HPF (None Seen)
[2022-03-16] MEDS: HYDROCODONE/APAP 5/325MG TABLET PO PRN (16:32)
[2022-03-16] MEDS: ENSURE ENLIVE 237 ML LIQUID (VANILLA) PO SCH (17:03)
--- NOTE | 2022-03-16 17:57 | NUR ---
RN NOTE- MESSAGED W DR BRAUN REGARDING DRESSING CHANGE AND SPLINT ON RUE. WOUND CARE TO SEE. CONSULT ORDERED FOR TOMORROW MORNING. SPLINT AND DRESSING EXAMINED AND REINFORCED BY THIS RN. EDEMATOUS DIGITS / WARM TO TOUCH, AND ECCHYMOTIC, CAPILLARY REFILL GOOD/PRESENT. SPLINT IN PLACE. DRESSINGS CHANGED TO OTHER AREAS BY TEACHING AIDE. WOUND CARE EVAL IN AM. FOLLOW UP PER ORDERS
--- NOTE | 2022-03-16 18:35 | NUR ---
INTERVENTIONAL RADIOLOGY RN CLOSING NOTES: PATIENT IN BED ASLEEP EASY TO AROUSED WITH STIMULI, A/O X2. NO SOB OR CARDIAC DISTRESS NOTED ON O2 INHALATION @2LPM VIA NC AND TOLERATING WELL. ON SERVER SYSTEMS ADMINISTRATOR WITH CURRENT READING OF SR 75 BPM. NOTED WITH SPLINT AND DRESSING ON RIGHT ARM NO S/S OF ANY BLEEDING OR DISCHARGES. WITH LEFT WRIST G22 NS @ 1OOML/HR. SAFETY PRECAUTIONS MAINTAINED: BED LOCKED AND IN LOWEST POSITION, SIDE RAILS UP X 2 CALL LIGHT IN EASY REACH FOR HELP/ASSISTANCE.ENDORSED TO INSTRUCTOR EXTENSION WORK NURSE FOR CONTINUITY OF CARE.
--- NOTE | 2022-03-16 19:25 | NUR ---
TAPPING MACHINE OPERATOR AUTOMATIC NOTES RECEIVED ON BED A/O 1-2,ABLE TO STATE HER NAME AND BIRTHDAY,S/P ORIF IN RIGHT WRIST 03/04,DRESSING INTACT AND DRY WITH SPLINT.SALINE LOCK LEFT WRIST INTACT AND PATENT.FALL RISK,BED ALARM,BED ON LOWEST POSITION AND LOCKED,CALL LIGHT IN REACH,NEEDS ANTICIPATED.
--- NOTE | 2022-03-16 20:00 | NUR ---
SAILOR NOTES SR-68 ON TELE MONITOR
[2022-03-17] VITALS: BP 126/60
[2022-03-17] MEDS: HYDROCODONE/APAP 5/325MG TABLET PO PRN (03:16)
--- NOTE | 2022-03-17 03:16 | NUR ---
PLASTIC TILE LAYER NOTES PAIN MANAGEMENT C/O PAIN 6/10 ON PAIN SCALE VIA RIGHT ARM,NORCO 5/325MG,1 TAB GIVEN WITH APPLE SAUCE PER PATIENT REQUEST.
[2022-03-17 04:00] VITALS: BP 135/86
[2022-03-17 04:05] VITALS: BP 103/60
--- NOTE | 2022-03-17 04:30 | NUR ---
DRY ICE MAKER NOTES MORNING CARE RENDERED TOLERATED WELL,REPOSITION PER PROTOCOL.
[2022-03-17 06:22] LABS: BASOPHILS % (AUTO) 0.2 % (0.0-2.0); EOSINOPHILS % (AUTO) 0.7 % (0.0-6.0); HEMATOCRIT 36 % (33-45); HEMOGLOBIN 11.9 g/dL (11.5-14.8); LYMPHOCYTES # (AUTO) 0.8 K/uL (0.8-4.8); MEAN CORPUSCULAR HGB CONC 33 g/dl (31.0-36.0); MEAN CORPUSCULAR VOLUME 91 fL (82-100); MONOCYTES # (AUTO) 0.9 K/uL (0.1-1.30); MONOCYTES % (AUTO) 11.8 % (2.0-12.0); NEUTROPHILS % (AUTO) 77.3 % (43.0-81.0); PLATELET COUNT (AUTO) 227 K/uL (150-450); RED BLOOD CELL COUNT(AUTO) 3.92 MIL/uL (4.0-5.2); WHITE BLOOD COUNT (AUTO) 7.8 K/uL (4.3-11.0)
--- NOTE | 2022-03-17 06:50 | NUR ---
SAMPLE COLOR MAKER NOTES ON BED ASLEEP,PAIN MANAGEMENT EFFECTIVE,O2 IN USED AT 2L/NC,NO SIGNS OF RESPIRATORY DISTRESS.WILL ENDORSE TO DAY NURSE FOR SHAILESH.
[2022-03-17 06:57] LABS: CALCIUM, SERUM 8.4 mg/dL (8.5-10.1); CREATININE 0.6 mg/dL (0.6-1.3); POTASSIUM 4.5 mmol/L (3.5-5.1)
--- NOTE | 2022-03-17 07:30 | NUR ---
MECHANICAL ENGINEERING SPECIALIST OPENING NOTES: RECEIVED PATIENT IN BED ASLEEP EASY TO AROUSED WITH STIMULI, A/O X2. NO SOB OR CARDIAC DISTRESS NOTED ON O2 INHALATION @2LPM VIA NC AND TOLERATING WELL. ON CHRISTIAN COUNSELOR WITH CURRENT READING OF SR 65 BPM,NOTED WITH SPLINT AND DRESSING ON RIGHT ARM NO S/S OF ANY BLEEDING OR DISCHARGES. WITH LEFT WRIST G22 PATENT AND INTACT, SALINE LOCKED. SAFETY PRECAUTIONS MAINTAINED: BED LOCKED AND IN LOWEST POSITION, SIDE RAILS UP X 2 CALL LIGHT IN EASY REACH FOR HELP/ASSISTANCE. WILL MONITOR FOR ANY SIGNIFICANT CHANGE.
--- NOTE | 2022-03-17 07:33 | NUR ---
WOUND CARE CONSULT: PT SEEN FOR LEFT LOWER LEG SKIN TEARS AND LEFT WRIST SUTURED LACERATIONS. RECOMMENDATIONS MADE FOR SKIN PROTECTION AND WOUND CARE. DISCUSSED WITH NURSING STAFF. MD IN AGREEMENT WITH PLAN OF CARE. Addendum: 03/17/22 at 0749 by DOROTHY GAN WNDNU DISCUSSED WRIST WITH DR BRAUN. SUTURED LACERATIONS SHOW NO SIGN OF INFECTION. THERE WAS MODERATE AMOUNT OF SEROSANGUINOUS DRAINAGE ON WRIST DRESSING AND SOME DRY DRAINAGE ON SPLINT. DRESSING AND SPLINT WERE REPLACED AFTER PHOTOS TAKEN. ORTHO TO DO DRESSING CHANGES FOR WRIST AND NURSING STAFF TO FOREARM DRESSING CHANGES DAILY. CLARIFIED WITH GOLF [employer]UB HEAD INSPECTOR AND NURSING STAFF.
[2022-03-17] MEDS: ENSURE ENLIVE 237 ML LIQUID (VANILLA) PO SCH ×2 (08:05→17:02)
[2022-03-17 08:22] VITALS: BP 120/66
[2022-03-17] MEDS: METOPROLOL SUCCINATE 25 MG TAB.SR.24H PO SCH (08:32)
[2022-03-17] MEDS: AMIODARONE HCL 200 MG TABLET PO SCH ×3 (08:32→16:53)
[2022-03-17] MEDS ORDERED: AMIO200T5 PO (09:00)
[2022-03-17] MEDS ORDERED: HYDR-4303 PO (09:00)
[2022-03-17] MEDS ORDERED: LORA-259 PO (09:00)
[2022-03-17] MEDS ORDERED: CYAN1TAB17 PO (09:00)
[2022-03-17] MEDS ORDERED: THIA100T88 PO (09:00)
[2022-03-17] MEDS: LORAZEPAM 0.5 MG TABLET PO PRN ×2 (13:56→18:06)
[2022-03-17 16:43] VITALS: BP 165/94
[2022-03-17 16:53] VITALS: BP 124/69
--- NOTE | 2022-03-17 19:06 | NUR ---
EHS TEACHER NOTES: PATIENT IN BED, DC TO SNF, GAVE REPORT TO TRAVON DENG. PATIENT ALERT AND ORIENTED X 1 WITH EPISODES OF CONFUSION AND FORGETFULNESS. NO SOB OR CARDIAC DISTRESS NOTED, AFEBRILE ON O2 INHALATION @2LPM TOLERATING WELL. SKIN ISSUES TAKEN AND FILED IN HER CHART. EMPHASIZED TO TRAVON DENG DONT REMOVE THE SPLINT DR BRAUN WILL CHANGE IT. ALL BELONGINGS TAKEN AND CARRIED WITH THE RESIDENT. REMOVED IV ACCESS ON LEFT WRIST NO S/S OF BLEEDING. KEPT IDENTIFICATION BAND IN PLACE. PATIENT KEPT CLEANED AND RESTED. PATIENT LEFT THE UNIT, ACCOMPANIED BY 2 PARAMEDICS VIA REGULAR GURNEY, LEFT THE UNIT STABLE.
== END 2022-03-17 19:20 | DRG 510 ==
LOC: ER 17:54 → MED 03-13 20:21 → TELE 03-14 17:00 → MED 03-17 10:12
PROVIDERS: ADMIT Internal Medicine; ATTEND Internal Medicine
PROC: 0PSH04Z Reposition Right Radius with Internal Fixation Device, Open Approach (ICD-10-PCS; principal; 2022-03-14)
DX: S52.571B Other intraarticular fracture of lower end of right radius, initial encounter for open fracture type I or II (principal); G93.41 Metabolic encephalopathy; I47.1 Supraventricular tachycardia; F10.131 Alcohol abuse with withdrawal delirium; S52.611A Displaced fracture of right ulna styloid process, initial encounter for closed fracture; I10 Essential (primary) hypertension; W01.0XXA Fall on same level from slipping, tripping and stumbling without subsequent striking against object, initial encounter; Z20.822 Contact with and (suspected) exposure to COVID-19; Y90.9 Presence of alcohol in blood, level not specified; F03.90 Unspecified dementia, unspecified severity, without behavioral disturbance, psychotic disturbance, mood disturbance, and anxiety; M81.0 Age-related osteoporosis without current pathological fracture; Y92.008 Other place in unspecified non-institutional (private) residence as the place of occurrence of the external cause
CPT/HCPCS: 36415; 70450-TC; 71045-TC; 72125-TC; 73080-TC; 73100-TC; 73110; 73200-TC; 80048-TC; 81001; 83735-TC; 84100-TC; 85025-TC; 85730-TC; 86850-TC; 87081-TC; 94799-TC; 97110-TC; 97116-TC; 97530-TC; 97535-TC; A4217; A6253; A6403; C1713; C9803; G0378; J0330; J0690; J0696; J2250; J2270; J2405; J2704; J2765; J3010; J3490; J7030; J7060; L3763